=== PATIENT | female | born 1980 | race Caucasian/White ===

== ENCOUNTER 2023-03-03 09:34 | Emergency (ER) | payer MEDICARE ==
[2023-03-03] MEDS ORDERED: Ondansetron 4 MG/2 ML SDV IVPUSH ONE (10:09)
[2023-03-03] MEDS ORDERED: Morphine 4 MG/ML Syringe IVPUSH ONE (10:09)
[2023-03-03 10:49] LABS: BASOPHILS ABSOLUTE AUTO 0.02 K/mm3 (0.01-0.08); BASOPHILS PERCENT AUTO 0.3 % (0.1-1.2); EOSINOPHILS PERCENT AUTO 1.3 (0.7-5.8); HEMATOCRIT 43.4 % (34.1-44.9); HEMOGLOBIN 14.6 gm/dl (11.2-15.7); IMMATURE GRAN ABSOLUTE AUTO 0.01 K/mm3 (0.00-0.10); IMMATURE GRAN PERCENT AUTO 0.1 % (<=1.0); LYMPHOCYTES ABSOLUTE AUTO 3.07 K/mm3 (1.18-3.74); LYMPHOCYTES PERCENT AUTO 39.9 % (19.3-51.7); MEAN CORPUSCULAR HEMOGLOBIN 30.7 pg (25.6-32.2); MEAN CORPUSCULAR HGB CONC 33.6 g/dl (32.2-35.5); MEAN CORPUSCULAR VOLUME 91.2 fl (79.4-94.8); MEAN PLATELET VOLUME 9.3 fl (9.4-12.3); MONOCYTES ABSOLUTE AUTO 0.71 K/mm3 (0.24-0.36); MONOCYTES PERCENT AUTO 9.2 % (4.7-12.5); NEUTROPHILS ABSOLUTE AUTO 3.79 K/mm3 (1.56-6.13); NEUTROPHILS PERCENT AUTO 49.2 % (34.0-71.1); PLATELET COUNT,PLT 369 K/mm3 (182-369); RED BLOOD CELL COUNT 4.76 M/mm3 (3.98-5.22)
[2023-03-03 11:15] LABS: A/G RATIO 1.1 (1-2); ANION GAP 11.7 (5-15); BILIRUBIN TOTAL 0.6 mg/dL (0.2-1.0); BUN/CREATININE RATIO 22.5 (14-18); CALCIUM 9.3 mg/dL (8.5-10.1); CREATININE 0.8 mg/dL (0.55-1.02); EST CRCL DRUG DOSING (CG) 83.27 mL/min; POTASSIUM,K 3.7 mEq/L (3.5-5.1); PROTEIN TOTAL,TP 7.7 g/dl (6.4-8.2)
== END 2023-03-03 12:28 | disposition home or self-care (01) ==
LOC: JD.ED 09:34
DX: R10.13 Epigastric pain (principal); F17.210 Nicotine dependence, cigarettes, uncomplicated
CPT/HCPCS: 36415; 80053; 83690; 84484; 85025; 93005; 96374; 96375; 99284; J2270; J2405; 93010

== ENCOUNTER 2023-03-07 07:56 | Emergency (ER) | payer MEDICARE ==
[2023-03-07] MEDS ORDERED: Morphine 2 MG/ML SYRINGE IVPUSH ONE (09:03)
[2023-03-07] MEDS ORDERED: Iopamidol 755 Mg/ML 100 ML Bottle IVPUSH ONE (09:10)
[2023-03-07] MEDS ORDERED: Sodium Chloride 0.9% 10 ML Syringe FLUSH PRN (09:10)
[2023-03-07 09:11] LABS: BASOPHILS ABSOLUTE AUTO 0.02 K/mm3 (0.01-0.08); BASOPHILS PERCENT AUTO 0.3 % (0.1-1.2); EOSINOPHILS ABSOLUTE AUTO 0.07 K/mm3 (0.04-0.36); EOSINOPHILS PERCENT AUTO 1.2 (0.7-5.8); HEMATOCRIT 41.9 % (34.1-44.9); HEMOGLOBIN 14.4 gm/dl (11.2-15.7); IMMATURE GRAN ABSOLUTE AUTO 0.01 K/mm3 (0.00-0.10); IMMATURE GRAN PERCENT AUTO 0.2 % (<=1.0); LYMPHOCYTES PERCENT AUTO 45.3 % (19.3-51.7); MEAN CORPUSCULAR HEMOGLOBIN 31.4 pg (25.6-32.2); MEAN CORPUSCULAR HGB CONC 34.4 g/dl (32.2-35.5); MEAN CORPUSCULAR VOLUME 91.3 fl (79.4-94.8); MEAN PLATELET VOLUME 9.4 fl (9.4-12.3); MONOCYTES ABSOLUTE AUTO 0.45 K/mm3 (0.24-0.36); MONOCYTES PERCENT AUTO 7.6 % (4.7-12.5); NEUTROPHILS ABSOLUTE AUTO 2.71 K/mm3 (1.56-6.13); NEUTROPHILS PERCENT AUTO 45.4 % (34.0-71.1); PLATELET COUNT,PLT 359 K/mm3 (182-369); RED BLOOD CELL COUNT 4.59 M/mm3 (3.98-5.22); WHITE BLOOD CELL COUNT,WBC 5.96 K/mm3 (3.98-10.04)
[2023-03-07 09:12] LABS: APPEARANCE,URINE CLEAR (Clear); BILIRUBIN,URINE NEGATIVE (Negative); COLOR,URINE YELLOW (Yellow); GLUCOSE,URINE NEGATIVE (Negative); KETONES,URINE NEGATIVE (Negative); LEUKOCYTE ESTERASE,URINE NEGATIVE (Negative); NITRITE,URINE NEGATIVE (Negative); OCCULT BLOOD,URINE NEGATIVE (Negative); PROTEIN,URINE NEGATIVE (Negative); UROBILINOGEN,URINE 0.2 (0.2-1.0)
[2023-03-07] MEDS ORDERED: Lactated Ringers 1,000 ML IV SCH (09:15)
[2023-03-07] MEDS ORDERED: Sodium Chloride 0.9% 100 ML IV SCH (09:15)
[2023-03-07] MEDS ORDERED: Ondansetron 4 MG/2 ML SDV IVPUSH ONE (09:15)
[2023-03-07 09:26] LABS: A/G RATIO 1.1 (1-2); ANION GAP 12.8 (5-15); BILIRUBIN TOTAL 0.6 mg/dL (0.2-1.0); CREATININE 0.8 mg/dL (0.55-1.02); EST CRCL DRUG DOSING (CG) 73.19 mL/min; POTASSIUM,K 3.8 mEq/L (3.5-5.1); PROTEIN TOTAL,TP 7.6 g/dl (6.4-8.2)
[2023-03-07] MEDS ORDERED: Alum Hydrox/Mag Hydrox/Simeth 30 ML, Lidocaine 2% 15 ML PO ONE ×2 (12:52)
[2023-03-07] MEDS ORDERED: Sucralfate Suspension 1 GM/10 ML Cup PO ONE (13:28)
== END 2023-03-07 13:55 | disposition home or self-care (01) ==
LOC: JD.ED 07:56
DX: R10.13 Epigastric pain (principal); R07.89 Other chest pain; M54.50 Low back pain, unspecified; Z91.040 Latex allergy status
CPT/HCPCS: 36415; 71275; 74177; 80053; 81003; 83690; 85025; 96361; 96374; 96375; 99285; A9270; J2270; J2405; J3490; J7120; Q9967; 99284